=== PATIENT | male | born 1945 | race Caucasian/White ===

== ENCOUNTER 2020-07-14 15:52 | Emergency (ER) | payer MEDICARE ==
[~2020-07-14] VITALS: Ht 190.5 cm; Wt 81.6 kg
--- NOTE | 2020-07-14 15:52 | NUR ---
PT RUTH FROM THE [facility] [place] C/O HEADTRAUMA S/P GLF. 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 WILL CONTINUE TO MONITOR.
--- NOTE | 2020-07-14 16:10 | NUR ---
SEEN AND EXAMINED BY .
[2020-07-14] MEDS ORDERED: LORAZEPAM INJ 2 MG/ML VIAL ONE (16:14)
[2020-07-14] MEDS ORDERED: LORAZEPAM INJ 2 MG/ML VIAL IM/IV ONE (16:30)
--- NOTE | 2020-07-14 16:47 | NUR ---
PT IS WHEELED TO CT SCAN VIA [facility].
--- NOTE | 2020-07-14 17:13 | NUR ---
IV LINE ESTABLISHED BLOOD DRAWN AND SENT TO LAB.
[2020-07-14 17:20] LABS: BASOPHILS % (AUTO) 0.2 % (0.0-2.0); EOSINOPHILS % (AUTO) 0.6 % (0.0-6.0); HEMATOCRIT 37 % (39-51); HEMOGLOBIN 12.4 g/dL (13.5-17.5); LYMPHOCYTES # (AUTO) 0.6 /CMM (0.8-4.8); LYMPHOCYTES % (AUTO) 7.5 % (20.0-44.0); MEAN CORPUSCULAR HGB CONC 33 g/dl (31.0-36.0); MEAN CORPUSCULAR VOLUME 92 fL (80-96); MONOCYTES # (AUTO) 0.6 /CMM (0.1-1.30); MONOCYTES % (AUTO) 7.9 % (2.0-12.0); NEUTROPHILS # (AUTO) 6.3 /CMM (1.8-8.9); NEUTROPHILS % (AUTO) 83.8 % (43.0-81.0); PLATELET COUNT (AUTO) 128 /CMM (150-450); RED BLOOD CELL COUNT(AUTO) 4.04 MIL/uL (4.5-6.0); WHITE BLOOD COUNT (AUTO) 7.5 K/uL (4.3-11.0)
[2020-07-14 17:27] LABS: CALCIUM, SERUM 8.6 mg/dL (8.5-10.1); CARBON DIOXIDE 25 mmol/L (21-32); CHLORIDE 111 mmol/L (98-107); CREATININE 1.3 mg/dL (0.6-1.3); GLUCOSE 88 mg/dL (74-106); POTASSIUM 4.1 mmol/L (3.5-5.1); SODIUM SERUM 148 mmol/L (136-145); UREA NITROGEN, BLOOD 37 mg/dL (7-18)
--- NOTE | 2020-07-14 17:28 | NUR ---
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
[2020-07-14 17:33] LABS: ALBUMIN 4.2 g/dL (3.4-5.0); ALKALINE PHOSPHATASE 53 U/L (46-116); ASPARTATE AMINOTRANSFERASE 27 U/L (15-37); BILIRUBIN,DIRECT 0.2 mg/dL (0.0-0.2); BILIRUBIN,TOTAL 1.1 mg/dL (0.2-1.0); TOTAL PROTEIN, SERUM 7.1 g/dL (6.4-8.2)
[2020-07-14] MEDS ORDERED: CARB1TAB39 PO (17:37)
[2020-07-14] MEDS ORDERED: CYAN-51 PO (17:37)
[2020-07-14] MEDS ORDERED: ASCO-352 PO (17:37)
[2020-07-14] MEDS ORDERED: MELA1TAB27 PO (17:37)
[2020-07-14] MEDS ORDERED: ALEN70TA6 PO (17:37)
[2020-07-14] MEDS ORDERED: CHOL100040 PO (17:37)
[2020-07-14] MEDS ORDERED: LINA290C PO (17:37)
[2020-07-14 17:43] LABS: ALANINE AMINOTRANSFERASE < 6 U/L (12-78)
--- NOTE | 2020-07-14 17:45 | NUR ---
[facility] CALLED PER DAUGHTER'S REQUEST, PRESENTED CASE TO JULISSA, FACESHEET AND CT REPORT FAXED TO [phone].
[2020-07-14] MEDS ORDERED: TRAZ-182 PO (18:17)
--- NOTE | 2020-07-14 18:19 | NUR ---
SPOKED TO ALTAF COSTA OF [facility] IS ON THE WAY NO CLEAR ETA YET PER ALTAF COSTA
--- NOTE | 2020-07-14 18:28 | NUR ---
received a report from the lab regarding covid 19 result "negative"
[2020-07-14] MEDS ORDERED: LEVETIRACETAM (500MG) 500 MG in IV NS 0.9% 100 ML IV ONE (18:30)
[2020-07-14 18:52] VITALS: BP 150/68
--- NOTE | 2020-07-14 19:00 | NUR ---
REPORT GIVEN TO ALTAF LOVE OF [facility] TRANSFER NURSE. PT IS AAOX2, NOT IN RESPIRATORY DISTRESS, V/S STABLE.
== END 2020-07-14 19:09 | disposition short-term general hospital (02) ==
LOC: ER 15:59
DX: S06.5X9A Traumatic subdural hemorrhage with loss of consciousness of unspecified duration, initial encounter (principal); R40.2242 Coma scale, best verbal response, confused conversation, at arrival to emergency department; R40.2362 Coma scale, best motor response, obeys commands, at arrival to emergency department; R40.2142 Coma scale, eyes open, spontaneous, at arrival to emergency department; W18.30XA Fall on same level, unspecified, initial encounter; Y93.9 Activity, unspecified; Y92.091 Bathroom in other non-institutional residence as the place of occurrence of the external cause; R94.31 Abnormal electrocardiogram [ECG] [EKG]; I67.2 Cerebral atherosclerosis; Z20.828 Contact with and (suspected) exposure to other viral communicable diseases
CPT/HCPCS: 36415; 70450; 71045; 80048; 80076; 85025; 85730; 87426; 93005; 96365; 96372; 99291; J1953; J2060; J7030; C9803-CS